=== PATIENT | female | born 1970 | race African-American/Black ===

== ENCOUNTER → 2024-06-03 | Day surgery (SDC) | payer OTHER | END | disposition home or self-care (01) | LOC: JMAMMO-SUR 12:20 → JRADUS-SUR 12:20 | PROVIDERS: ATTEND Surgery Surgical Oncology | PROC: BH41ZZZ Ultrasonography of Left Breast (ICD-10-PCS; principal; 2024-06-03) | DX: C50.912 Malignant neoplasm of unspecified site of left female breast (principal) | CPT/HCPCS: 19285; A4648; 19281 ==

== ENCOUNTER 2024-06-08 09:31 | Day surgery (SDC) | payer OTHER ==
[2024-06-03 09:54] VITALS: BMI 28.3
[2024-06-08] MEDS ORDERED: PROPOFOL 20 ML ONE (10:50)
[2024-06-08] MEDS ORDERED: MIDAZOLAM HCL 2 MG/2 ML SINGLE DOSE VIAL ONE (10:50)
[2024-06-08] MEDS ORDERED: DEXAMETHASONE SOD PHOSPHATE 4 MG/1 ML VIAL ONE (10:52)
[2024-06-08] MEDS ORDERED: KETOROLAC TROMETHAMINE 30 MG/1 ML VIAL ONE (10:52)
[2024-06-08] MEDS ORDERED: ONDANSETRON 4 MG/2 ML VIAL ONE (10:52)
[2024-06-08] MEDS ORDERED: ceFAZolin SODIUM 1 GM VIAL ONE (10:52)
[2024-06-08] MEDS ORDERED: BUPIVACAINE HCL/PF 0.5% (5MG/ML) 10 ML VIAL ONE (11:42)
[2024-06-08] MEDS ORDERED: GUM MASTIC/STORAX/MSAL/ALCOHOL 1 DRP DROPSBTL MC ONE (11:42)
[2024-06-08] MEDS ORDERED: ONDANSETRON 4 MG/2 ML VIAL IVPUSH PRN (11:45)
[2024-06-08] MEDS ORDERED: LACTATED RINGERS SOLUTION 1,000 ML IV SCH (11:45)
[2024-06-08] MEDS ORDERED: ACETAMINOPHEN INJECTION 100 ML ONE (11:46)
[2024-06-08] MEDS: BUPIVACAINE HCL/PF 0.5% (5 MG/ML) 30 ML VIAL IJ ONE (12:41)
[2024-06-08] MEDS ORDERED: FENTANYL CITRATE/PF 50 MCG/ML VIAL ONE (13:03)
[2024-06-08] MEDS ORDERED: oxyCODONE HCL 5 MG TABLET ONE (14:04)
[2024-06-08] MEDS: oxyCODONE HCL 5 MG TABLET PO PRN (14:05)
[2024-06-08 17:51] VITALS: TEMP 97
[2024-06-08 17:54] VITALS: RESP 17
[2024-06-08 17:58] VITALS: BP 132/92; PULSE 72
== END 2024-06-08 14:45 | disposition home or self-care (01) ==
LOC: FASU 09:31
PROVIDERS: ATTEND Surgery Surgical Oncology
PROC: 0HBU0ZZ Excision of Left Breast, Open Approach (ICD-10-PCS; principal; 2024-06-08 12:04)
DX: D05.12 Intraductal carcinoma in situ of left breast (principal)
CPT/HCPCS: 76098-TC-FY; 81025; 88307-TC; 88342-TC; 94760; J0131

== ENCOUNTER 2024-07-06 09:24 | Day surgery (SDC) | payer OTHER ==
[2024-06-30 14:17] VITALS: BMI 28.3
[2024-07-06] MEDS ORDERED: oxyCODONE HCL 5 MG TABLET PO PRN (09:53)
[2024-07-06] MEDS ORDERED: ONDANSETRON 4 MG/2 ML VIAL IVPUSH PRN (09:53)
[2024-07-06] MEDS ORDERED: LACTATED RINGERS SOLUTION 1,000 ML IV SCH (10:00)
[2024-07-06] MEDS ORDERED: BUPIVACAINE HCL/PF 0.5% (5MG/ML) 10 ML VIAL ONE (11:13)
[2024-07-06] MEDS ORDERED: LIDOCAINE HCL/PF 2% SDV 5ML VIAL ONE (11:37)
[2024-07-06] MEDS ORDERED: MIDAZOLAM HCL 2 MG/2 ML SINGLE DOSE VIAL ONE (11:37)
[2024-07-06] MEDS ORDERED: PROPOFOL 40 ML ONE (11:37)
[2024-07-06] MEDS ORDERED: ePHEDrine SULFATE 50 MG/1 ML AMPULE ONE (11:52)
[2024-07-06] MEDS ORDERED: ONDANSETRON 4 MG/2 ML VIAL ONE (12:03)
[2024-07-06] MEDS ORDERED: DEXAMETHASONE SOD PHOSPHATE 4 MG/1 ML VIAL ONE (12:03)
[2024-07-06] MEDS ORDERED: KETOROLAC TROMETHAMINE 30 MG/1 ML VIAL ONE (12:03)
[2024-07-06 13:32] VITALS: RESP 18; TEMP 97.8
[2024-07-06 14:11] VITALS: BP 120/85; PULSE 78
== END 2024-07-06 14:05 | disposition home or self-care (01) ==
LOC: FASU 09:24
PROVIDERS: ATTEND Surgery Surgical Oncology
PROC: 0JB60ZX Excision of Chest Subcutaneous Tissue and Fascia, Open Approach, Diagnostic (ICD-10-PCS; 2024-07-06)
PROC: 0H9U0ZZ Drainage of Left Breast, Open Approach (ICD-10-PCS; principal; 2024-07-06 12:00)
DX: C50.912 Malignant neoplasm of unspecified site of left female breast (principal); I10 Essential (primary) hypertension
CPT/HCPCS: 81025; 88307-TC; 94760